=== PATIENT | male | born 1955 | race Caucasian/White ===

== ENCOUNTER 2016-12-20 00:07 | Emergency (ER) | payer OTHER ==
[~2016-12-20] VITALS: Ht 177.8 cm; Wt 68.0 kg
[~2016-12-20 00:07] MED LIST: AMOX-73 PO; METF500T4 PO
[2016-12-20 00:11] VITALS: BP 123/82
== END 2016-12-20 01:05 | disposition home or self-care (01) ==
LOC: ER 00:07
DX: K04.7 Periapical abscess without sinus (principal); E78.00 Pure hypercholesterolemia, unspecified; E11.9 Type 2 diabetes mellitus without complications
CPT/HCPCS: 82962; 99283